=== PATIENT | female | born 1940 | race Caucasian/White ===

== ENCOUNTER → 2018-11-05 14:03 | Outpatient (CLI) | payer MEDICARE, SELFPAY ==
--- NOTE | 2018-11-05 14:11 | XR_ITS ---
PROCEDURE: XR LUMBAR SPINE MIN 4V CLINICAL INDICATION: LOW BACK PAIN Low back pain COMPARISON: No exams were available for comparison FINDINGS: Mild lumbar scoliosis convex right. Mild facet arthritic changes L5-S1. Degenerative disc disease is present at T12-L1 L1-L2 and L2-L3. There is anterolisthesis of L4 on L5 of 8 mm and there degenerative disc disease at L5-S1. No acute fracture or dislocation. IMPRESSION: Lumbar spondylosis with multilevel degenerative disc disease and facet arthritic change Dictated by: Ronaldo Rivera MD 11/05/2018 15:20 Electronically signed by Ronaldo Rivera MD in [place] 11/05/2018 15:20
== END ==
PROVIDERS: PCP Family Medicine; Visit Provider Family Medicine
DX: M54.5 Low back pain (principal)
CPT/HCPCS: 72110

== ENCOUNTER → 2022-10-07 15:20 | Outpatient (CLI) | payer MEDICARE, SELFPAY ==
[2022-10-07 12:48] LABS: Basophils % 0.3 % (0.1-2.0); Eosinophils # 0.2 K/mm3 (0.0-0.4); Eosinophils % 2.4 % (0.1-12.0); Hematocrit 34.4 % (37.0-47.0); Hemoglobin 10.7 g/dL (12.2-16.2); Lymphocytes # 1.7 K/mm3 (0.7-4.5); Lymphocytes % 18.9 % (10-50); Mean Corpuscular HGB Conc 31.2 g/dL (31.8-35.4); Mean Corpuscular Hemoglobin 23.4 pg (27.0-31.2); Mean Corpuscular Volume 74.9 fl (81-99); Mean Platelet Volume 8.2 fl (7.4-10.4); Monocytes # 0.7 K/mm3 (0.1-1.0); Monocytes % 7.6 % (1.7-9.3); Neutrophils # 6.4 K/mm3 (1.8-7.8); Neutrophils % 70.9 % (37.0-80.0); Platelet Count 467 K/mm3 (142-424); Red Blood Count 4.59 M/mm3 (4.20-5.40); Red Cell Distribution Width 18.1 % (11.5-17.5)
[2022-10-07 12:57] LABS: Alanine Aminotransferase 21 U/L (12-78); Albumin Level 4.2 g/dl (3.5-5.0); Albumin/Globulin Ratio 1.6 (1.1-1.8); Alkaline Phosphatase 100 U/L (38-126); Anion Gap 13.5 mEq/L (5-15); Aspartate Amino Transferase 27 U/L (14-36); Bilirubin,Total 0.5 mg/dl (0.2-1.3); Blood Urea Nitrogen 23 mg/dl (7-17); Calcium 9.3 mg/dl (8.4-10.2); Carbon Dioxide 25 mmol/L (22.0-30.0); Chloride 104 mmol/L (98-107); Chol/HDL Ratio 3.1 (1-3.5); Cholesterol 213 mg/dl (140-200); Estimated Glomerular Filt Rate 60 ml/min (>60); GFR (African American) 72 ML/MIN (>60); Globulin 2.7 g/dL (1.3-3.2); Glucose 129 mg/dl (74-100); HDL Cholesterol 68 mg/dl (40-60); Potassium 4.5 mmoL/L (3.5-5.1); Sodium 138 mmol/L (136-145); Total Protein,Serum 6.9 g/dl (6.3-8.2); Triglycerides 85 mg/dl (30-150); VLDL Cholesterol 17 mg/dL (0-40)
[2022-10-07 13:08] LABS: Direct LDL Cholesterol 108.25 mg/dL (100-129)
[2022-10-07 13:18] LABS: 25-OH Vitamin D, Total 36.2 ng/mL (30-100)
[2022-10-07 14:56] LABS: Iron 33 ug/dL (37-170)
[2022-10-07 15:06] LABS: Total Iron Binding Capacity 416 ug/dL (265-497)
== END ==
PROVIDERS: PCP Physician Assistant; Visit Provider Physician Assistant
DX: I10 Essential (primary) hypertension (principal); E55.9 Vitamin D deficiency, unspecified; R73.09 Other abnormal glucose; D64.9 Anemia, unspecified
CPT/HCPCS: 80053; 80061; 82306; 82728; 83036; 83540; 83550; 84443; 85025

== ENCOUNTER 2023-06-07 17:41 | Inpatient (IN) | payer MEDICARE, SELFPAY ==
[2023-06-07] VITALS (22 sets, daily range): BP systolic 100–170; BP diastolic 54–137; PULSE 67–117; RESP 14–24; TEMP 36.6–37; O2SAT 94–100; BMI 29.2
[2023-06-07] MEDS: ETOMIDATE 40MG/20ML VIAL 40 MG IV (17:42)
--- NOTE | 2023-06-07 17:51 | CT_ITS ---
PROCEDURE INFORMATION: Exam: CTA Chest With Contrast Exam date and time: 06/07/2023 6:47 PM Age: 83 years old Clinical indication: Injury or trauma; Other: Unresponsive; Additional info: AMS, syncope TECHNIQUE: Imaging protocol: Computed tomographic angiography of the chest with contrast. Exam focused on the arteries. 3D rendering (Not supervised by radiologist): MIP and/or 3D reconstructed images were created by the technologist. Radiation optimization: All CT scans at this facility use at least one of these dose optimization techniques: automated exposure control; mA and/or kV adjustment per patient size (includes targeted exams where dose is matched to clinical indication); or iterative reconstruction. Contrast material: ISOVUE; Contrast volume: 100 ml; Contrast route: INTRAVENOUS (IV); COMPARISON: 1. CT ANGIO ABDOMEN PELVIS 06/07/2023 6:[address] ANGIO NECK 06/07/2023 6:[address] THORACIC SPINE WO CON 06/07/2023 6:38 PM FINDINGS: Tubes, catheters and devices: There is an endotracheal tube in place. Pulmonary arteries: Normal. No pulmonary emboli. Aorta: There is atherosclerotic disease of the visualized aorta and its major branch vessels. Lungs: Scattered areas of bronchial wall thickening which are likely chronic inflammatory. A few areas of subpleural reticulation are noted, nonspecific. Pleural spaces: Unremarkable. No pneumothorax. No pleural effusion. Heart: Unremarkable. No cardiomegaly. No pericardial effusion. Coronary arteries: There is mild coronary atherosclerotic disease/calcification although evaluation is limited secondary to the non gated nature of the study. Lymph nodes: Unremarkable. No enlarged lymph nodes. Intraperitoneal space: Please see the dedicated interpretation of abdomen and pelvis for findings in that region. Bones/joints: Please see the dedicated interpretation of the spine for findings in that region. There is diffuse degenerative disease of the visualized osseous structures. Soft tissues: Unremarkable. IMPRESSION: 1. No acute traumatic injury is identified. 2. Please see the dedicated interpretation of abdomen and pelvis for findings in that region.
--- NOTE | 2023-06-07 17:51 | ECG_ITS ---
APPROVED REPORT Exam: Resting ECG HR:106 bpm ECG Measurements Heart Rate 106 AXES CA 170 P 50 QRSd 131 QRS -81 QT 346 T 45 QTc 408 Conclusion SINUS TACHYCARDIA WITH FREQUENT ECTOPIC PREMATURE COMPLEXES RIGHT BUNDLE BRANCH BLOCK [120+ ms QRS DURATION, UPRIGHT V1, 40+ ms S IN I/aVL/V4/V5/V6] PROBABLE ANTERIOR MYOCARDIAL INFARCTION , OF INDETERMINATE AGE [35 ms Q WAVE IN V3/V4] INFERIOR MYOCARDIAL INFARCTION , OF INDETERMINATE AGE [40+ ms Q WAVE AND/OR ST/T ABNORMALITY IN II/aVF] ABNORMAL ECG UNCONFIRMED REPORT Electronically signed by : SALINA SALAMANCA, 06/09/2023 03:01:12
--- NOTE | 2023-06-07 17:52 | CT_ITS ---
PROCEDURE INFORMATION: Exam: CT Thoracic Spine Without Contrast Exam date and time: 06/07/2023 6:38 PM Age: 83 years old Clinical indication: Injury or trauma; Other: Unresponsive; Blunt trauma (contusions or hematomas); Additional info: Trauma, critical injury suspected TECHNIQUE: Imaging protocol: Computed tomography of the thoracic spine without contrast. Radiation optimization: All CT scans at this facility use at least one of these dose optimization techniques: automated exposure control; mA and/or kV adjustment per patient size (includes targeted exams where dose is matched to clinical indication); or iterative reconstruction. COMPARISON: 1. CT CERVICAL SPINE WO CON 06/07/2023 6:34 PM 2. CR XR LUMBAR SPINE MIN 4V 11/05/2018 2:21 PM FINDINGS: Bones/joints: There is a slight levo scoliotic curvature of the spine. No evidence of acute spondylolisthesis or vertebral subluxation. Vertebral body heights are generally preserved, but some endplate sclerosis and anterior osteophytes are noted at multiple levels. Narrowing of multiple intervertebral disc spaces observed, indicative of degenerative disc disease. Hypertrophic changes are seen in the facet joints, consistent with osteoarthritis. No fractures or bony lesions identified. No abnormalities seen in adjacent osseous structures. Soft tissues: Unremarkable. Other findings: No obvious abnormalities seen in the prevertebral and paravertebral soft tissues. IMPRESSION: Degenerative changes without acute abnormality detected.
--- NOTE | 2023-06-07 17:52 | CT_ITS ---
PROCEDURE INFORMATION: Exam: CT Lumbar Spine Without Contrast Exam date and time: 06/07/2023 6:40 PM Age: 83 years old Clinical indication: Injury or trauma; Other: Unresponsive; Additional info: Trauma, critical injury suspected TECHNIQUE: Imaging protocol: Computed tomography of the lumbar spine without contrast. Radiation optimization: All CT scans at this facility use at least one of these dose optimization techniques: automated exposure control; mA and/or kV adjustment per patient size (includes targeted exams where dose is matched to clinical indication); or iterative reconstruction. COMPARISON: 1. CR XR LUMBAR SPINE MIN 4V 11/05/2018 2:[address] THORACIC SPINE WO CON 06/07/2023 6:38 PM FINDINGS: Bones/joints: Status post right total hip arthroplasty with associated streak artifact which limits evaluation of the pelvis. No evidence of acute spondylolisthesis or vertebral subluxation. Vertebral body heights are generally preserved, but some endplate sclerosis and anterior osteophytes are noted at multiple levels. Narrowing of multiple intervertebral disc spaces observed, indicative of degenerative disc disease. Hypertrophic changes are seen in the facet joints, consistent with osteoarthritis. No fractures or bony lesions identified. No abnormalities seen in adjacent osseous structures. There is a dextroscoliotic curvature of the spine. There is anterolisthesis of L4 on L5. Lungs: There are areas of subpleural reticulation throughout the visualized lungs which are nonspecific. Vasculature: Scattered atherosclerotic disease of the arterial vasculature. Soft tissues: Unremarkable. Other findings: No obvious abnormalities seen in the prevertebral and paravertebral soft tissues. IMPRESSION: Degenerative changes without acute abnormality detected.
--- NOTE | 2023-06-07 17:52 | CT_ITS ---
PROCEDURE INFORMATION: Exam: CTA Head With Contrast, Arteriography Exam date and time: 06/07/2023 6:43 PM Age: 83 years old Clinical indication: Injury or trauma; Other: Unresponsive; Unconscious; Additional info: Trauma, critical injury suspected TECHNIQUE: Imaging protocol: Computed tomographic angiography of the head with contrast. Exam focused on the arteries. 3D rendering (Not supervised by radiologist): MIP and/or 3D reconstructed images were created by the technologist. Radiation optimization: All CT scans at this facility use at least one of these dose optimization techniques: automated exposure control; mA and/or kV adjustment per patient size (includes targeted exams where dose is matched to clinical indication); or iterative reconstruction. Contrast material: ISOVUE; Contrast volume: 370 ml; Contrast route: INTRAVENOUS (IV); COMPARISON: CT HEAD/BRAIN WO CON 06/07/2023 6:26 PM FINDINGS: Limitations: Study is of limited due to motion artifact and patient positioning. ANTERIOR CIRCULATION: Right internal carotid artery: Intracranial segment is patent with no significant stenosis. No aneurysm. Right middle cerebral artery: No occlusion or significant stenosis. No aneurysm. Right anterior cerebral artery: No occlusion or significant stenosis. No aneurysm. Left internal carotid artery: Intracranial segment is patent with no significant stenosis. No aneurysm. Left middle cerebral artery: No occlusion or significant stenosis. No aneurysm. Left anterior cerebral artery: No occlusion or significant stenosis. No aneurysm. POSTERIOR CIRCULATION: Right vertebral artery: No occlusion or significant stenosis. No aneurysm. Left vertebral artery: No occlusion or significant stenosis. No aneurysm. Basilar artery: There is focal narrowing of the of basilar artery. No occlusion. Right posterior cerebral artery: Right posterior cerebral artery not well demonstrated and appears technical in nature. No occlusion. Left posterior cerebral artery: Left posterior cerebral artery not well demonstrated due to technical limitations. No occlusion. Brain: No intracranial hemorrhage, mass effect, or midline shift. Cerebral ventricles: No ventriculomegaly. Bones/joints: Unremarkable. No acute fracture. Soft tissues: Unremarkable. IMPRESSION: 1. Limited study. 2. Focal stenosis midportion basilar artery. 3. Limited assessment of the posterior cerebral arteries to the technical factors. No occlusion.
--- NOTE | 2023-06-07 17:52 | CT_ITS ---
PROCEDURE INFORMATION: Exam: CT Cervical Spine Without Contrast Exam date and time: 06/07/2023 6:34 PM Age: 83 years old Clinical indication: Injury or trauma; Other: Unresponsive; Unconscious; Additional info: Trauma, critical injury suspected TECHNIQUE: Imaging protocol: Computed tomography of the cervical spine without contrast. Radiation optimization: All CT scans at this facility use at least one of these dose optimization techniques: automated exposure control; mA and/or kV adjustment per patient size (includes targeted exams where dose is matched to clinical indication); or iterative reconstruction. COMPARISON: No relevant prior studies available. FINDINGS: Limitations: Suboptimal positioning. Tubes, catheters and devices: Endotracheal tube. Bones/joints: No acute fracture. Normal alignment. Mild facet osteoarthrosis within cervical spine. Mild degenerative disc disease within mid cervical spine. Moderate degenerative disc disease within lower cervical spine. Paranasal sinuses: Tiny air-fluid level within LEFT sphenoid sinus. Lungs: Unremarkable as visualized. Vasculature: Atherosclerotic disease of visualized arteries. Soft tissues: Unremarkable. IMPRESSION: 1. No fracture. 2. Sinus disease.
--- NOTE | 2023-06-07 17:52 | CT_ITS ---
PROCEDURE INFORMATION: Exam: CT Head Without Contrast Exam date and time: 06/07/2023 6:26 PM Age: 83 years old Clinical indication: Injury or trauma; Other: Unresponsive; Unconscious; Additional info: Trauma, critical injury suspected TECHNIQUE: Imaging protocol: Computed tomography of the head without contrast. Radiation optimization: All CT scans at this facility use at least one of these dose optimization techniques: automated exposure control; mA and/or kV adjustment per patient size (includes targeted exams where dose is matched to clinical indication); or iterative reconstruction. COMPARISON: No relevant prior studies available. FINDINGS: Limitations: Motion artifact - mild. Suboptimal positioning. Tubes, catheters and devices: Endotracheal tube. Brain: Moderate atrophy. No definite intracranial hemorrhage. No mass. Several scattered foci of decreased attenuation within periventricular/subcortical white matter. No definite edema. Cerebral ventricles: No hydrocephalus. Paranasal sinuses: Scattered minimal mucosal thickening of ethmoid sinuses. Tiny air-fluid level within LEFT sphenoid sinus. Mastoid air cells: No significant effusion. Orbital cavities: Unremarkable as visualized. Bones/joints: No acute fracture. Soft tissues: Unremarkable. Vasculature: Atherosclerotic disease of intracranial arteries. IMPRESSION: 1. Probable chronic microvascular ischemic changes. If symptoms persist, consider MRI. 2. Sinus disease.
--- NOTE | 2023-06-07 17:52 | CT_ITS ---
PROCEDURE INFORMATION: Exam: CTA Neck With Contrast Exam date and time: 06/07/2023 6:43 PM Age: 83 years old Clinical indication: Injury or trauma; Other: Unresponsive; Unconscious; Additional info: Trauma, critical injury suspected TECHNIQUE: Imaging protocol: Computed tomographic angiography of the neck with contrast. Exam focused on the cervical segments of the vasculature. 3D rendering (Not supervised by radiologist): MIP and/or 3D reconstructed images were created by the technologist. Radiation optimization: All CT scans at this facility use at least one of these dose optimization techniques: automated exposure control; mA and/or kV adjustment per patient size (includes targeted exams where dose is matched to clinical indication); or iterative reconstruction. Contrast material: ISOVUE; Contrast volume: 370 ml; Contrast route: INTRAVENOUS (IV); COMPARISON: CT CERVICAL SPINE WO CON 06/07/2023 6:34 PM FINDINGS: Limitations: Study is technically limited due to patient positioning, which in artifact as well as streak artifact emanating from multiple collaterals within the upper chest and not. Tubes, catheters and devices: There is a tracheostomy tube terminating 2 cm above the hui. Right common carotid artery: No stenosis. No dissection or occlusion. Right internal carotid artery: Right internal carotid artery partially obscured but grossly patent. Right external carotid artery: No occlusion or stenosis of the origin. Left common carotid artery: No stenosis. No dissection or occlusion. Left internal carotid artery: Left internal carotid artery partially obscured but grossly patent. Left external carotid artery: No occlusion or stenosis of the origin. Right vertebral artery: Right vertebral artery partially obscured but grossly patent. Left vertebral artery: Left vertebral artery partially obscured but grossly patent. Veins: There are prominent venous collaterals within the supraclavicular fossa and neck secondary to a chronic left subclavian vein stenosis. Soft tissues: Normal. No significant soft tissue swelling. Bones/joints: No acute fracture. IMPRESSION: 1. Limited study in part due to prominent streak artifact secondary to prominent venous collaterals within the neck secondary to chronic left subclavian vein stenosis. 2. No large vessel occlusion or severe stenosis detected. REFERENCES: NASCET CRITERIA. The degree of stenosis in the cervical segment of the internal carotid artery is based on NASCET criteria. Normal is no stenosis. Mild is less than 50% stenosis. Moderate is 50-69% stenosis. Severe is 70% to 99% stenosis. Total occlusion is no detectable patent lumen.
--- NOTE | 2023-06-07 17:52 | CT_ITS ---
PROCEDURE INFORMATION: Exam: CTA Abdomen and Pelvis With Contrast Exam date and time: 06/07/2023 6:47 PM Age: 83 years old Clinical indication: Injury or trauma; Other: Unresponsive; Additional info: Trauma, critical injury suspected TECHNIQUE: Imaging protocol: Computed tomographic angiography of the abdomen and pelvis with contrast. Exam focused on the arteries. 3D rendering (Not supervised by radiologist): MIP and/or 3D reconstructed images were created by the technologist. Radiation optimization: All CT scans at this facility use at least one of these dose optimization techniques: automated exposure control; mA and/or kV adjustment per patient size (includes targeted exams where dose is matched to clinical indication); or iterative reconstruction. Contrast material: ISOVUE; Contrast volume: 100 ml; Contrast route: INTRAVENOUS (IV); COMPARISON: 1. CT ANGIO CHEST PE PROTOCOL 06/07/2023 6:[address] LUMBAR SPINE WO CON 06/07/2023 6:[address] THORACIC SPINE WO CON 06/07/2023 6:38 PM FINDINGS: Diaphragm: There is a moderate hiatal hernia. Aorta: No aortic aneurysm. No aortic dissection. Celiac trunk and mesenteric arteries: No occlusion or significant stenosis. Renal arteries: No occlusion or significant stenosis. Right iliac arteries: No occlusion or significant stenosis. Left iliac arteries: No occlusion or significant stenosis. Other arteries: There is some atherosclerotic narrowing at the origin of the SMA. Liver: No mass. Gallbladder and bile ducts: Unremarkable. No calcified stones. No ductal dilation. Pancreas: Unremarkable. No mass. No ductal dilation. Spleen: Unremarkable. No splenomegaly. Adrenal glands: Unremarkable. No mass. Kidneys and ureters: Unremarkable. No solid mass. No hydronephrosis. Stomach and bowel: Unremarkable. No obstruction. No mucosal thickening. Appendix: No evidence of appendicitis. Intraperitoneal space: Unremarkable. No free air. No significant fluid collection. Lymph nodes: Unremarkable. No enlarged lymph nodes. Urinary bladder: There is a Sutherland catheter place within the urinary bladder. Reproductive: 2 cm right adnexal cyst in a presumably postmenopausal patient, further evaluation with nonemergent pelvic ultrasound is suggested. Bones/joints: Status post right total hip arthroplasty with associated streak artifact which limits evaluation of the pelvis. Slight anterolisthesis of L4 on L5. Soft tissues: Unremarkable. Other findings: Please see the dedicated interpretation of the thorax for findings in that region. IMPRESSION: 1. No evidence for acute traumatic injury. No acute pathology identified in the abdomen or pelvis. 2. 2 cm right adnexal cyst in a presumably postmenopausal patient, further evaluation with nonemergent pelvic ultrasound is suggested. 3. Please see the dedicated interpretation of the thorax for findings in that region.
[2023-06-07 18:05] LABS: Microscopic, Urine URINE MICROSCOPIC (MICROSCOPIC)
[2023-06-07 18:06] LABS: Appearance,Urine CLEAR (Clear); Bilirubin,Urine Negative (Negative); Blood, Urine Negative (Negative); Color,Urine YELLOW (Yellow); Glucose,Urine (UA) Negative (Negative); Ketones,Urine Negative (Negative); Leukocyte Esterase,Urine Negative (Negative); Nitrate,Urine Negative (Negative); PH,Urine 5.5 (5.0-8.5); Protein,Urine Negative (Negative); Specific Gravity, Urine 1.025 (1.005-1.030); Urobilinogen,Urine 0.2 EU/dl (0.2)
[2023-06-07 18:06] LABS: Basophils # 0.1 K/mm3 (0-0.2); Basophils % 0.5 % (0.1-2.0); Eosinophils # 0.1 K/mm3 (0.0-0.4); Eosinophils % 0.6 % (0.1-12.0); Hemoglobin 10.6 g/dL (12.2-16.2); Lymphocytes # 2.2 K/mm3 (0.7-4.5); Mean Corpuscular HGB Conc 30.4 g/dL (31.8-35.4); Mean Corpuscular Hemoglobin 22.6 pg (27.0-31.2); Mean Corpuscular Volume 74.3 fl (81-99); Mean Platelet Volume 7.7 fl (7.4-10.4); Monocytes # 1.4 K/mm3 (0.1-1.0); Monocytes % 6.7 % (1.7-9.3); Neutrophils # 17.7 K/mm3 (1.8-7.8); Neutrophils % 82.3 % (37.0-80.0); Platelet Count 592 K/mm3 (142-424); Red Blood Count 4.71 M/mm3 (4.20-5.40); Red Cell Distribution Width 18.4 % (11.5-17.5); White Blood Count 21.5 K/mm3 (4.8-10.8)
[2023-06-07 18:07] LABS: Chloride 116 mmol/L (98-107); Potassium 3.4 mmoL/L (3.5-5.1); Sodium 142 mmol/L (136-145)
[2023-06-07 18:09] LABS: HDL Cholesterol 76 mg/dl (40-60); Lipase 44 U/L (23-300)
[2023-06-07 18:10] LABS: Alanine Aminotransferase 20 U/L (12-78); Albumin Level 2.8 g/dl (3.5-5.0); Albumin/Globulin Ratio 1.4 (1.1-1.8); Alkaline Phosphatase 75 U/L (38-126); Anion Gap 11.4 mEq/L (5-15); Aspartate Amino Transferase 29 U/L (14-36); Bilirubin,Total 0.4 mg/dl (0.2-1.3); Blood Urea Nitrogen 21 mg/dl (7-17); Calcium 7.5 mg/dl (8.4-10.2); Carbon Dioxide 18 mmol/L (22.0-30.0); Chol/HDL Ratio 2.8 (1-3.5); Cholesterol 215 mg/dl (140-200); Creatine Kinase 318 U/L (30-135); Creatinine Clearance Estimated 49 mL/min (50-200); Estimated Glomerular Filt Rate 68 ml/min (>60); GFR (African American) 82 ML/MIN (>60); Glucose 147 mg/dl (74-100); Total Protein,Serum 4.8 g/dl (6.3-8.2); Triglycerides 94 mg/dl (30-150); VLDL Cholesterol 19 mg/dL (0-40)
[2023-06-07 18:12] LABS: Acetaminophen < 10 ug/ml (10-30); Activated Partial Thrombo Time 25.4 seconds (22.8-30.6); Ethyl Alcohol < 10 mg/dl (0-10); Lactic Acid 3.7 mmol/L (0.7-2.1)
--- NOTE | 2023-06-07 18:12 | HMH.EDGENADL ---
Discharge Plan Disposition Patient Disposition: Admitted Chief Complaint: Altered Mental Status Clinical Impressions Clinical Impression: Encephalopathy Discharge ED Provider: Jerrod Billingsley General Adult HPI General Chief complaint: Altered Mental Status Stated complaint: unresponsive Time Seen by Provider: 06/07/23 17:51 History of Present Illness HPI narrative: 83-year-old female history of hypertension, hyperlipidemia, chronic pain on hydrocodone presenting with unresponsiveness. Was found by family, unknown downtime. The think it is about 30 minutes, but do not actually know. EMS was called. On arrival, patient's glucose greater than 200, no obvious STEMI on twelve-lead, nasopharyngeal airway was placed without issue with minimal response from patient. Brought emergently to the emergency department. Patient given IV Narcan prior to arrival without change in response. Related Data Home Medications Medication Instructions Recorded Confirmed lisinopril 20 1 tab PO DAILY 02/05/23 05/08/23 mg-hydrochlorothiazide 12.5 mg tablet Previous Rx's Medication Instructions Recorded amlodipine 10 mg tablet 10 mg PO DAILY #90 tabs 12/04/22 ergocalciferol (vitamin D2) 1,250 50,000 unit PO QWEEK #14 caps 12/04/22 mcg (50,000 unit) capsule azithromycin 250 mg tablet See Rx Instructions PO .COMPLEX #6 05/08/23 (Zithromax Z-Jair) tabs prednisone 20 mg tablet 20 mg PO BID #10 tabs 05/08/23 hydrocodone 5 mg-acetaminophen 325 1 tab PO TID PRN pain #75 tabs 05/09/23 mg tablet hydrocodone 5 mg-acetaminophen 325 1 tab PO TID PRN pain 30 days #90 05/09/23 mg tablet tabs hydrocodone 5 mg-acetaminophen 325 1 tab PO TID PRN pain 30 days #90 05/09/23 mg tablet tabs meloxicam 15 mg tablet See Rx Instructions .Route 05/22/23 .COMPLEX #30 tabs Allergies Allergy/AdvReac Type Severity Reaction Status Date / Time No Known Allergies Allergy Verified 05/08/23 13:43 [facility] Disclaimer: The information contained in this section may have been updated after the patient was seen, as this information can be updated by other users. Medical History Chronic pain Hypertension Surgical History History of hip replacement Social History Smoking Status: Unknown if ever smoked alcohol intake: never current occupational status: retired Travel in the last 8 weeks: None ROS Obtained: Yes unobtainable due to mental status Physical Exam General General appearance: obtunded Head Head exam: atraumatic Eye Eye exam: Present EOMI (3mm) ENT ENT exam: Present mucous membranes dry Neck Neck exam: Present other (C-collar in place) Chest Chest inspection: Present symmetric chest wall rise; Absent tenderness Respiratory Respiratory exam: Present normal lung sounds bilaterally and wheezes; Absent respiratory distress, stridor, accessory muscle use or prolonged expiratory phase Cardiovascular Cardiovascular exam: Present normal rhythm and tachycardia Abdominal Exam Abdominal exam: Present soft; Absent distention Extremities Exam Extremities exam: Present edema Neurological Exam Neurological exam: Present other (GCS 6 ([id number])) Medical Decision Making Medical Records Medical records reviewed: Yes I reviewed the patient's medical records. Per Inquiry Pt receiving controlled substance: No Per was queried for this patient: No Vital Signs: 06/07/23 18:42 06/07/23 18:56 06/07/23 19:00 Pulse Rate 92 H 94 H Pulse Rate [Left Radial] 117 H Respiratory Rate 24 20 18 Blood Pressure 160/77 H 161/77 H Blood Pressure [Right Arm] 170/137 H Blood Pressure Mean 104 105 Blood Pressure Mean [Right Arm] 148 02 Sat by Pulse Oximetry 100 100 99 Oxygen Delivery Method Ambu-Bag Mechanical Ventilation Mechanical Ventilation 06/07/23 19:11 06/07/23 19:21 06/07/23 19:25 Pulse Rate 95 H 94 H 98 H Pulse Rate [Left Radial] Respiratory Rate 16 21 16 Blood Pressure 161/86 H 148/76 H 160/81 H Blood Pressure [Right Arm] Blood Pressure Mean 111 100 95 Blood Pressure Mean [Right Arm] 02 Sat by Pulse Oximetry 100 100 99 Oxygen Delivery Method Mechanical Ventilation Mechanical Ventilation Mechanical Ventilation Lab Data Lab Results 06/07/23 17:42: WBC 21.5 H*, RBC 4.71, Hgb 10.6 L, Hct 35.0 L, MCV 74.3 L, MCH 22.6 L, MCHC 30.4 L, RDW 18.4 H, Plt Count 592 H, MPV 7.7, Neut % (Auto) 82.3 H, Lymph % (Auto) 10.0, [place] % (Auto) 6.7, Eos % (Auto) 0.6, Baso % (Auto) 0.5, Neut # (Auto) 17.7 H, Lymph # (Auto) 2.2, [place] # (Auto) 1.4 H, Eos # (Auto) 0.1, Baso # (Auto) 0.1, Total Counted 100, Neutrophils % (Manual) 83 H, Lymphocytes % (Manual) 16, Atypical Lymphs % 1.0, Platelet Estimate Moderate increase, Hypochromasia 2+, APTT 25.4, Sodium 142, Potassium 3.4 L, Chloride 116 H, Carbon Dioxide 18 L, Anion Gap 11.4, BUN 21 H, Creatinine 0.80, Estimated Creat Clear 49, Estimated GFR 68, Est GFR ( Amer) 82, Glucose 147 H, Hemoglobin A1c 6.0, Lactate 3.7 H, Calcium 7.5 L, Total Bilirubin 0.4, AST 29, ALT 20, Alkaline Phosphatase 75, Total Creatine Kinase 318 H, Troponin I 0.05 H, NT-Pro-B Natriuret Pep 742 H, Total Protein 4.8 L D, Albumin 2.8 L, Globulin 2.0, Albumin/Globulin Ratio 1.4, Triglycerides 94, Cholesterol 215 H, LDL Cholesterol Direct 109.50, VLDL Cholesterol 19, HDL Cholesterol 76 H, Cholesterol/HDL Ratio 2.8, Lipase 44, TSH 1.13, Thyroxine (T4) 7.8, Acetaminophen < 10 L, Plasma/Serum Alcohol < 10 06/07/23 17:47: Urine Color Yellow, Urine Appearance Clear, Urine pH 5.5, Ur Specific [place] 1.025, Urine Protein Negative, Urine Glucose (UA) Negative, Urine Ketones Negative, Urine Blood Negative, Urine Nitrate Negative, Urine Bilirubin Negative, Urine Urobilinogen 0.2, Ur Leukocyte Esterase Negative, Urine RBC None, Urine WBC Occasional, Ur Squamous Epith Cells Occasional, Urine Bacteria Trace 06/07/23 17:53: Specimen Source rr, O2 % 100, ABG pH 7.36, ABG pCO2 33.3 L, ABG pO2 463.9 H, ABG HCO3 18.5 L, ABG Total CO2 19.5 L, ABG O2 Saturation 100, ABG Base Excess -6.9 L, Ronaldo Test y, Vent Rate 18, Tidal Volume 420, PEEP 5 06/07/23 17:42 06/07/23 17:42 Orders (Tests/Meds): ED MEDICATIONS Generic Name Dose Route Start Last Admin Trade Name Freq PRN Reason Stop Dose Admin Acetaminophen 650 mg 06/07/23 19:59 Acetaminophen 325mg Tab PO 07/07/23 19:58 Q4HP PRN Fever or Mild Pain (1-3) Enoxaparin Sodium 40 mg 06/07/23 20:05 Enoxaparin 40mg/0.4ml Syringe SQ 06/07/23 20:06 ONCE ONE Propofol 100 mls @ 2.245 mls/hr 06/07/23 18:15 06/07/23 19:35 Diprivan 10mg/Ml 100ml Bottle IV 07/07/23 18:14 30 mcg/kg/min .Q24H LUCILA 13.47 mls/hr Titration Protocol 5 MCG/KG/MIN Sodium Chloride 1,570 mls @ 785 mls/hr 06/07/23 19:56 06/07/23 20:09 Sod Chlor 0.9% 1000ml Bag 30 ml/kg infuse over 2 hr (1570 ml) 06/07/23 21:55 785 mls/hr IV Administration .Q2H ONE Vancomycin/PEG/NADA/Lysine/Water 1.75 gm in 350 mls @ 175 mls/hr 06/07/23 20:15 Vancomycin 1.75gm/350ml (Peg) Premix IV 06/07/23 22:14 ONCE ONE Miscellaneous 1 each 06/07/23 20:00 06/07/23 20:01 Vancomycin Consult Request NOTAPPLIC 07/07/23 19:59 1 each CONSULT PHARMACY [facility] Administration Miscellaneous 1 each 06/07/23 20:15 06/07/23 20:15 Vancomycin Consult Request NOTAPPLIC 07/07/23 20:14 1 each CONSULT PHARMACY [facility] Administration Morphine Sulfate 2 mg 06/07/23 19:59 Morphine 2mg/Ml Syringe IV 07/07/23 19:58 Q2HP PRN Severe Pain (7-10) Pantoprazole Sodium 40 mg 06/07/23 21:00 Pantoprazole 40mg Vial IV 07/07/23 20:59 HS [facility] Discontinued Medications Generic Name Dose Route Start Last Admin Trade Name Freq PRN Reason Stop Dose Admin Etomidate 40 mg 06/07/23 17:42 06/07/23 17:42 Etomidate 40mg/20ml Vial IV 06/07/23 17:43 40 mg ONCE ONE Administration Etomidate 30 mg 06/07/23 18:33 06/07/23 18:38 Etomidate 40mg/20ml Vial IV 06/07/23 18:34 30 mg ONCE ONE Administration Hydrocortisone Sodium Succinate 100 mg 06/07/23 18:32 06/07/23 19:14 Hydrocortisone Sod Succinate 100mg Vial IV 06/07/23 18:33 100 mg ONCE ONE Administration Hydromorphone HCl 1 mg 06/07/23 19:23 06/07/23 19:28 Hydromorphone 2mg/Ml Syringe IV 06/07/23 19:24 1 mg ONCE ONE Administration Ampicillin Sodium/Sulbactam 100 mls @ 200 mls/hr 06/07/23 19:54 06/07/23 20:09 Sodium 3 gm/ Sodium Chloride IV 06/07/23 19:55 200 mls/hr ONCE ONE Administration Iopamidol 190 ml 06/07/23 18:44 06/07/23 18:47 Iopamidol-370 (76%);100ml Bottle IV 06/07/23 18:45 190 ml ONCE ONE Administration Sodium Chloride 100 ml 06/07/23 18:44 06/07/23 18:47 0.9 % Sodium Chloride 50 Ml Vial IV 06/07/23 18:45 100 ml ONCE ONE Administration Sodium Chloride 10 ml 06/07/23 18:44 06/07/23 18:47 Sodium Chloride 0.9% 10ml Syr (Rad Only) IV 06/07/23 18:45 10 ml ONCE ONE Administration Succinylcholine Chloride 150 mg 06/07/23 17:42 06/07/23 18:22 Succinylcholine 20mg/Ml 10 Ml Mdv IV 06/07/23 17:43 150 mg ONCE ONE Administration ORDERS Category Date Time Status CT angio abdomen pelvis Stat Cat Scan 06/07/23 17:[address] angio chest PE protocol Stat Cat Scan 06/07/23 17:[address] angio head Stat Cat Scan 06/07/23 17:[address] angio neck Stat Cat Scan 06/07/23 17:[address] cervical spine wo con Stat Cat Scan 06/07/23 17:[address] head/brain wo con Stat Cat Scan 06/07/23 17:[address] lumbar spine wo con Stat Cat Scan 06/07/23 17:[address] thoracic spine wo con Stat Cat Scan 06/07/23 17:52 Completed Acetaminophen Stat Lab 06/07/23 17:42 Completed CK [Creatine Kinase] Stat Lab 06/07/23 17:42 Completed Complete Blood Count Auto Diff AMLAB Lab 06/08/23 06:00 Ordered Complete Blood Count Auto Diff Stat Lab 06/07/23 17:42 Completed Comprehensive Metabolic Panel AMLAB Lab 06/08/23 06:00 Ordered Comprehensive Metabolic Panel Stat Lab 06/07/23 17:42 Completed Ethanol [Ethyl Alcohol] Stat Lab 06/07/23 17:42 Completed Hemoglobin A1C Stat Lab 06/07/23 17:42 Completed Lactic Acid Stat Lab 06/07/23 17:42 Completed Lipase Stat Lab 06/07/23 17:42 Completed Lipid Panel Stat Lab 06/07/23 17:42 Completed Magnesium AMLAB Lab 06/08/23 06:00 Ordered NT Pro Brain Natriuretic Pep. Stat Lab 06/07/23 17:42 Completed PTT [Activated Partial Thrombo Time] Stat Lab 06/07/23 17:42 Completed T4 (Thyroxine) Stat Lab 06/07/23 17:42 Completed TSH [Thyroid Stimulating Hormone] Stat Lab 06/07/23 17:42 Completed Troponin I Q3H Lab 06/07/23 21:00 Ordered Troponin I Q3H Lab 06/08/23 00:00 Ordered Troponin I Stat Lab 06/07/23 17:42 Completed Urinalysis and Microscopic Stat Lab 06/07/23 17:47 Completed Blood Culture Stat Micro 06/07/23 19:20 Received ABG [Arterial Blood Gas] Stat RT 06/07/23 17:53 Completed Medical Decision Narrative: 83-year-old female history of hypertension, hyperlipidemia, chronic pain on hydrocodone presenting with unresponsiveness. Was found by family, unknown downtime. The think it is about 30 minutes, but do not actually know. EMS was called. On arrival, patient's glucose greater than 200, no obvious STEMI on twelve-lead, nasopharyngeal airway was placed without issue with minimal response from patient. Brought emergently to the emergency department. Patient given IV Narcan prior to arrival without change in response. History obtained with EMS. On arrival, patient GCS of 6, saturating appropriately on nonrebreather and nasopharyngeal airway in place. Intermittently having inward turning of bilateral upper extremities concerning for possible posturing. Lower extremities doing the same intermittently. Pupils are 4 mm and reactive sluggishly bilaterally. No obvious head or neck trauma, lungs with bilateral wheezes that are faint, but breath sounds bilaterally. Patient does have intact and symmetric pulses in bilateral upper and lower extremities. Lower extremity edema. Patient tachycardic, but hemodynamically stable otherwise. She is afebrile. Patient was intubated for airway protection shortly after arrival using etomidate and succinylcholine. Post sedation with propofol. Cardiac ultrasound with difficult windows, only able to see there is no effusion. Bilateral breath sounds, there does appear to be B-lines in both hemithoraces. Labs and trauma scans obtained. Independent interpretation of workup demonstrates leukocytosis 22 with neutrophilia. Lactate 3.3, initial blood gas not acidotic with pH 7.36, CO2 33, oxygen elevated, lactate 3. Chemistry nonactionable, kidney function normal, CK3 18, initial troponin 0.05, BNP 742. EKG independently interpreted and sinus tachycardia 107 bpm with right bundle branch block morphology, no ST or T wave changes concerning for acute ischemia. [place], QT intervals within normal limits and axis normal. Trauma scans independently interpreted and are surprisingly underwhelming. No intracranial hemorrhage, no evidence of CVA, no PE, no dissection on CTA chest. No pneumothorax or pneumonia. CTA of the abdomen and pelvis without acute intra-abdominal abnormality either. Patient given sepsis bolus with normal saline, vancomycin and Unasyn. Patient's clinical history is concerning for encephalopathy versus malignant arrhythmia, versus mechanical fall with severe concussion, among other etiologies. Patient has been prophylactically antibiosis, no obvious, actionable traumatic pathology, and overall unremarkable workup. Hospitalist was contacted and case was discussed at length, patient be admitted for further definitive management and evaluation in the setting of encephalopathy of unknown etiology. Because patient high risk for clinical decompensation, deemed appropriate for inpatient admission. Results were relayed to patient family who voiced understanding and patient was agreeable to inpatient admission and management. Patient was admitted to the hospital for further definitive management. Procedures Intubation Mallampati Score:: Class IV Time out performed: No sedative: Etomidate Mg Given: 40 paralytic: Succinylcholine Mg Given: 150 Laryngoscope: Poppy Assist Device Used: fiber optic device ET Tube Size: 7.5 ET Tube Uncuffed: Yes Tube Secured Depth (cm): 22 Tube Secured Location: teeth Tube Placement Confirmation: visualized tube passing through cords, equal breath sounds bilaterally, no breath sounds over epigastrium and confirmation by capnometry Patient Tolerated Procedure: well Intubation Complications: none Critical Care Critical Care Time Critical Care Time: Yes (respiratory, neurologic) Attestation: On 06/07/23, the high probability of a clinically significant, sudden or life threatening deterioration of the following system(s) required my full and direct attention, intervention and personal management. The time I documented below is in addition to time spent performing reported procedures but includes the following listed in this critical care notation. Total Time Total Critical Care Time: 120
[2023-06-07 18:13] LABS: MANUAL DIFFERENTIAL MANUAL DIFFERENTIAL (MANUAL DIFF)
[2023-06-07] MEDS: propofoL 100 ML 4.49000000000000021 MG IV (18:17)
[2023-06-07 18:20] LABS: Bacteria,Urine Trace /lpf; Squamous Epithelial Cell,Urine Occasional #/hpf (0-5); WBC,Urine Occasional #/hpf (0-3)
[2023-06-07 18:20] LABS: NT Pro Brain Natriuretic Pep. 742 pg/mL (0-450)
[2023-06-07] MEDS: SUCCINYLCHOLINE 20MG/ML 10 ML MDV 150 MG IV (18:22)
[2023-06-07 18:24] LABS: Troponin I 0.05 ng/ml (0.00-0.034)
[2023-06-07 18:28] LABS: Lymphocytes % 16 % (10-50); Neutrophils % 83 % (42-76); Platelet Estimate Moderate Increase; Total Cells Counted 100
[2023-06-07 18:29] LABS: Hypochromasia 2+; T4 (Thyroxine) 7.8 ug/dl (5.53-11.0)
[2023-06-07] MEDS: ETOMIDATE 40MG/20ML VIAL 30 MG IV (18:38)
[2023-06-07 18:43] LABS: Thyroid Stimulating Hormone 1.13 uIU/mL (0.465-4.68)
[2023-06-07] MEDS: IOPAMIDOL-370 (76%);100ML BOTTLE 190 ML IV (18:47)
[2023-06-07] MEDS: 0.9 % SODIUM CHLORIDE 50 ML VIAL 100 ML IV (18:47)
[2023-06-07] MEDS: SODIUM CHLORIDE 0.9% 10ML SYR (RAD ONLY) 10 ML IV (18:47)
--- NOTE | 2023-06-07 19:02 | PC.NURSE ---
FAMILY AT BEDSIDE
--- NOTE | 2023-06-07 19:02 | PC.NURSE ---
lab called for blood culture draw at this time
--- NOTE | 2023-06-07 19:03 | PC.NURSE ---
RT notified of ABG order
--- NOTE | 2023-06-07 19:10 | PC.NURSE ---
Report received from ALISA Danielson
[2023-06-07] MEDS: HYDROCORTISONE SOD SUCCINATE 100MG VIAL 100 MG IV (19:14)
[2023-06-07] MEDS: HYDROMORPHONE 2MG/ML SYRINGE 1 MG IV (19:28)
--- NOTE | 2023-06-07 19:45 | PC.NURSE ---
Dr. Elder talking to Hospitilist for admission
[2023-06-07 19:49] LABS: ABG Base Excess -6.9 mmol/L (-2.4-2.3); ABG HCO3 18.5 mmhg (22.0-26.0); ABG Oxygen Saturation 100 % (90-100); ABG PCO2 33.3 mmhg (35.0-45.0); ABG PH 7.36 mmol/L (7.35-7.45); ABG PO2 463.9 mmhg (80-100); ABG TCO2 19.5 mmhg (23-27)
--- NOTE | 2023-06-07 19:56 | PC.NURSE ---
ED doctor on phone with hospitalist
[2023-06-07] MEDS: VANCOMYCIN CONSULT REQUEST 1 EACH NOTAPPLIC ×2 (20:01→20:15)
--- NOTE | 2023-06-07 20:03 | PC.NURSE ---
notified house wirer helper of admission
[2023-06-07] MEDS: 0.9 % SODIUM CHLORIDE 1000ML 1,570 ML 785 ML IV (20:09)
[2023-06-07] MEDS: AMPICILLIN/SULBACTAM 3 GM in 0.9 % SODIUM CHLORIDE 100 ML IV (20:09)
--- NOTE | 2023-06-07 20:09 | P.HP_ITS ---
History of Present Illness *Admission Date: 06/07/23 [facility] Disclaimer: The information contained in this section may have been updated after the patient was seen, as this information can be updated by other users. Medical History Chronic pain Hypertension Surgical History History of hip replacement Social History Smoking Status: Unknown if ever smoked alcohol intake: never current occupational status: retired Travel in the last 8 weeks: None Meds Home Medications and Allergies Home Medications Medication Instructions Recorded Confirmed Type amlodipine 10 mg tablet 10 mg PO DAILY #90 tabs 12/04/22 05/08/23 Rx ergocalciferol (vitamin D2) 1,250 50,000 unit PO QWEEK #14 caps 12/04/22 05/08/23 Rx mcg (50,000 unit) capsule lisinopril 20 1 tab PO DAILY 02/05/23 05/08/23 History mg-hydrochlorothiazide 12.5 mg tablet azithromycin 250 mg tablet See Rx Instructions PO .COMPLEX #6 05/08/23 05/08/23 Rx (Zithromax Z-Jair) tabs prednisone 20 mg tablet 20 mg PO BID #10 tabs 05/08/23 05/08/23 Rx hydrocodone 5 mg-acetaminophen 325 1 tab PO TID PRN pain #75 tabs 05/09/23 05/09/23 Rx mg tablet hydrocodone 5 mg-acetaminophen 325 1 tab PO TID PRN pain 30 days #90 05/09/23 05/09/23 Rx mg tablet tabs hydrocodone 5 mg-acetaminophen 325 1 tab PO TID PRN pain 30 days #90 05/09/23 05/09/23 Rx mg tablet tabs meloxicam 15 mg tablet See Rx Instructions .Route 05/22/23 Rx .COMPLEX #30 tabs New Prescriptions to Start Prescriptions: Allergies Allergy/AdvReac Type Severity Reaction Status Date / Time No Known Allergies Allergy Verified 05/08/23 13:43 Exam Data for Last 24 hours Vital signs and Labs for Last 24 Hours: Pulse Resp BP Pulse Ox O2 Del Method 98 H 16 160/81 H 99 Mechanical Ventilation 06/07/23 19:25 06/07/23 19:25 06/07/23 19:25 06/07/23 19:25 06/07/23 19:25 Laboratory Results - last 24 hr 06/07/23 17:42: WBC 21.5 H*, RBC 4.71, Hgb 10.6 L, Hct 35.0 L, MCV 74.3 L, MCH 22.6 L, MCHC 30.4 L, RDW 18.4 H, Plt Count 592 H, MPV 7.7, Neut % (Auto) 82.3 H, Lymph % (Auto) 10.0, [place] % (Auto) 6.7, Eos % (Auto) 0.6, Baso % (Auto) 0.5, Neut # (Auto) 17.7 H, Lymph # (Auto) 2.2, [place] # (Auto) 1.4 H, Eos # (Auto) 0.1, Baso # (Auto) 0.1, Total Counted 100, Neutrophils % (Manual) 83 H, Lymphocytes % (Manual) 16, Atypical Lymphs % 1.0, Platelet Estimate Moderate increase, Hypochromasia 2+, APTT 25.4, Sodium 142, Potassium 3.4 L, Chloride 116 H, Carbon Dioxide 18 L, Anion Gap 11.4, BUN 21 H, Creatinine 0.80, Estimated Creat Clear 49, Estimated GFR 68, Est GFR ( Amer) 82, Glucose 147 H, Hemoglobin A1c 6.0, Lactate 3.7 H, Calcium 7.5 L, Total Bilirubin 0.4, AST 29, ALT 20, Alkaline Phosphatase 75, Total Creatine Kinase 318 H, Troponin I 0.05 H, NT-Pro-B Natriuret Pep 742 H, Total Protein 4.8 L D, Albumin 2.8 L, Globulin 2.0, Albumin/Globulin Ratio 1.4, Triglycerides 94, Cholesterol 215 H, LDL Cholesterol Direct 109.50, VLDL Cholesterol 19, HDL Cholesterol 76 H, Cholesterol/HDL Ratio 2.8, Lipase 44, TSH 1.13, Thyroxine (T4) 7.8, Acetaminophen < 10 L, Plasma/Serum Alcohol < 10 06/07/23 17:47: Urine Color Yellow, Urine Appearance Clear, Urine pH 5.5, Ur Specific [place] 1.025, Urine Protein Negative, Urine Glucose (UA) Negative, Urine Ketones Negative, Urine Blood Negative, Urine Nitrate Negative, Urine Bilirubin Negative, Urine Urobilinogen 0.2, Ur Leukocyte Esterase Negative, Urine RBC None, Urine WBC Occasional, Ur Squamous Epith Cells Occasional, Urine Bacteria Trace I & O for Last 24 hours: Intake & Output 06/04/23 06/05/23 06/06/23 06/07/23 23:59 23:59 23:59 23:59 Intake Total 8.084 / 8.084 Balance 8.084 / 8.084 Weight 74.843 kg
[2023-06-07 20:11] LABS: Allen's Test y; Oxygen 100 %; PEEP 5; Source rr; Tidal Volume 420; Vent Rate 18
--- NOTE | 2023-06-07 20:44 | PC.NURSE ---
report given to ALISA Tran
--- NOTE | 2023-06-07 20:46 | PC.NURSE ---
Waiting for respiratory to transport patient to second floor
[2023-06-07 21:29] LABS: Reflex Lactic Add Lactic Reflex
[2023-06-07 21:44] LABS: Lactic Acid Follow Up (RFLX 1) 1.2 mmol/L (0.7-2.1)
[2023-06-07 21:59] LABS: Troponin I 0.42 ng/ml (0.00-0.034)
--- NOTE | 2023-06-07 22:25 | XR_ITS ---
PROCEDURE INFORMATION: Exam: XR Chest Exam date and time: 06/07/2023 10:46 PM Age: 83 years old Clinical indication: Device placement; Ett placement (vent status) TECHNIQUE: Imaging protocol: Radiologic exam of the chest. Views: 1 view. COMPARISON: CT ANGIO CHEST PE PROTOCOL 06/07/2023 6:47 PM FINDINGS: Tubes, catheters and devices: There is an endotracheal tube in place, tip projects over the mid trachea. Lungs: No evidence of acute pulmonary disease or infiltrates Pleural spaces: No large effusion or pneumothorax. Heart/Mediastinum: There is a moderate hiatal hernia. Bones/joints: No evidence of acute osseous abnormalities within the visualized portions of the thoracic spine and ribs. Osseous structures appear appropriate for patient age. Other findings: The patient is rotated on the examination which somewhat alters the expected anatomic relationships and limits the study. IMPRESSION: Radiographically appropriate position of the endotracheal tube.
[2023-06-07] MEDS: VANCOMYCIN/WATER FOR INJ (PEG) 1.75 GM/350 ML PIGGYBACK IV (22:37)
[2023-06-07] MEDS: PANTOPRAZOLE 40MG VIAL 40 MG IV (22:37)
[2023-06-07] MEDS: ENOXAPARIN 40MG/0.4ML SYRINGE 40 MG SQ (22:37)
--- NOTE | 2023-06-07 22:40 | P.HPDS_ITS ---
General Admission date:: 06/07/23 Discharge date: 06/07/23 *Admission Date: 06/07/23 *Chief complaint: found unresponsive *History of present illness: 83-year-old female history of hypertension, hyperlipidemia, chronic pain on hydrocodone presenting with unresponsiveness. Last time seen normal around 3p today. later was found by family, unknown downtime. The think it is about 30 minutes, but do not actually know. EMS was called. On arrival, patient's glucose greater than 200, no obvious STEMI on twelve-lead, nasopharyngeal airway was placed without issue with minimal response from patient. Brought emergently to the emergency department. Patient given IV Narcan prior to arrival without change in response. History obtained with EMS. On arrival, patient GCS of 6, saturating appropriately on nonrebreather and nasopharyngeal airway in place. Intermittently having inward turning of bilateral upper extremities concerning for possible posturing. Lower extremities doing the same intermittently. Pup ils are 4 mm and reactive sluggishly bilaterally. No obvious head or neck trauma, lungs with bilateral wheezes that are faint, but breath sounds bilaterally. Patient does have intact and symmetric pulses in bilateral upper and lower extremities. Lower extremity edema. Patient tachycardic, but hemodynamically stable otherwise. She is afebrile. Patient was intubated for airway protection shortly after arrival using etomidate and succinylcholine. Post sedation with propofol. Cardiac ultrasound with difficult windows, only able to see there is no effusion. Bilateral breath sounds, there does appear to be B-lines in both hemithoraces. Labs and trauma scans obtained. Independent interpretation of workup demonstrates leukocytosis 22 with neutrophilia. Lactate 3.3, initial blood gas not acidotic with pH 7.36, CO2 33, oxygen elevated, lactate 3. Chemistry nonactionable, kidney function normal, CK3 18, initial troponin 0.05, BNP 742. EKG independently interpreted and sinus tachycardia 107 bpm with right bundle branch block morphology, no ST or T wave changes concerning for acute ischemia. NH, QT intervals within normal limits and axis normal. Trauma scans independently interpreted and are surprisingly underwhelming. No intracranial hemorrhage, no evidence of CVA, no PE, no dissection on CTA chest. No pneumothorax or pneumonia. CTA of the abdomen and pelvis without acute intra-abdominal abnormality either. Patient given sepsis bolus with normal saline, vancomycin and Unasyn. Patient's clinical history is concerning for encephalopathy versus malignant arrhythmia, versus mechanical fall with severe concussion, among other etiologies. Patient has been prophylactically antibiosis, no obvious, actionable traumatic pathology, and overall unremarkable workup. Hospitalist was contacted and case was discussed at length, patient be admitted for further definitive management and evaluation in the setting of encephalopathy of unknown etiology. Because patient high risk for clinical decompensation, deemed appropriate for inpatient admission. 2140: Bedside assessment showed no improvement on mental status. Patient failed sedation break-off. Pupils are non reactive. Needs for MRI became urgent. Transfer requested for neurological evaluation. accepted for ICU. patient hemodinamically stable. on mechanical vent. propofol for sedationa. Setting AC VT 420 PEP 5 RR 18. [facility] Disclaimer: The information contained in this section may have been updated after the patient was seen, as this information can be updated by other users. Medical History Chronic pain Hypertension Surgical History History of hip replacement Social History Smoking Status: Unknown if ever smoked alcohol intake: never current occupational status: retired Travel in the last 8 weeks: None Review of Systems Review of Systems Review of systems:: unable to obtain Exam Data for Last 24 hours Vital signs and Labs for Last 24 Hours: Temp Pulse Resp BP Pulse Ox O2 Del Method 98.6 F 74 18 100/54 L 99 Mechanical Ventilation 06/07/23 21:46 06/07/23 21:13 06/07/23 21:13 06/07/23 21:13 06/07/23 20:20 06/07/23 21:13 Laboratory Results - last 24 hr 06/07/23 17:42: WBC 21.5 H*, RBC 4.71, Hgb 10.6 L, Hct 35.0 L, MCV 74.3 L, MCH 22.6 L, MCHC 30.4 L, RDW 18.4 H, Plt Count 592 H, MPV 7.7, Neut % (Auto) 82.3 H, Lymph % (Auto) 10.0, [place] % (Auto) 6.7, Eos % (Auto) 0.6, Baso % (Auto) 0.5, Neut # (Auto) 17.7 H, Lymph # (Auto) 2.2, [place] # (Auto) 1.4 H, Eos # (Auto) 0.1, Baso # (Auto) 0.1, Total Counted 100, Neutrophils % (Manual) 83 H, Lymphocytes % (Manual) 16, Atypical Lymphs % 1.0, Platelet Estimate Moderate increase, Hypochromasia 2+, APTT 25.4, Sodium 142, Potassium 3.4 L, Chloride 116 H, Carbon Dioxide 18 L, Anion Gap 11.4, BUN 21 H, Creatinine 0.80, Estimated Creat Clear 49, Estimated GFR 68, Est GFR ( Amer) 82, Glucose 147 H, Hemoglobin A1c 6.0, Lactate 3.7 H, Calcium 7.5 L, Total Bilirubin 0.4, AST 29, ALT 20, Alkaline Phosphatase 75, Total Creatine Kinase 318 H, Troponin I 0.05 H, NT-Pro-B Natriuret Pep 742 H, Total Protein 4.8 L D, Albumin 2.8 L, Globulin 2.0, Albumin/Globulin Ratio 1.4, Triglycerides 94, Cholesterol 215 H, LDL Cholesterol Direct 109.50, VLDL Cholesterol 19, HDL Cholesterol 76 H, Cholesterol/HDL Ratio 2.8, Lipase 44, TSH 1.13, Thyroxine (T4) 7.8, Acetaminophen < 10 L, Plasma/Serum Alcohol < 10 06/07/23 17:47: Urine Color Yellow, Urine Appearance Clear, Urine pH 5.5, Ur Specific [place] 1.025, Urine Protein Negative, Urine Glucose (UA) Negative, Urine Ketones Negative, Urine Blood Negative, Urine Nitrate Negative, Urine Bilirubin Negative, Urine Urobilinogen 0.2, Ur Leukocyte Esterase Negative, Urine RBC None, Urine WBC Occasional, Ur Squamous Epith Cells Occasional, Urine Bacteria Trace 06/07/23 17:53: Specimen Source rr, O2 % 100, ABG pH 7.36, ABG pCO2 33.3 L, ABG pO2 463.9 H, ABG HCO3 18.5 L, ABG Total CO2 19.5 L, ABG O2 Saturation 100, ABG Base Excess -6.9 L, Ronaldo Test y, Vent Rate 18, Tidal Volume 420, PEEP 5 06/07/23 21:15: Lactate 1.2, Troponin I 0.42 H I & O for Last 24 hours: Intake & Output 06/04/23 06/05/23 06/06/23 06/07/23 23:59 23:59 23:59 23:59 Intake Total 30.534 / 30.534 Output Total 800 / 800 Balance -769.466 / -769.466 Weight 74.843 kg Constitutional Constitutional: obtunded *Routine HEENT Exam Head: Present normocephalic Eye: Absent EOMI, PERRL, normal accommodation or nystagmus ENT: Present mucous membranes moist *Routine Neck Exam Neck: Present supple; Absent lymphadenopathy *Routine Respiratory Exam Respiratory: Present patient mechanically ventilated *Routine Cardiovascular Exam Cardiovascular: Present RRR, Normal S1 and Normal S2 *Routine Abdominal Exam Abdominal: Present soft and normoactive bowel sounds; Absent tenderness *Routine Rectal Exam Rectal:: deferred *Routine Genitalia Exam Genitalia:: deferred *Routine Extremities Exam Extremities: Absent cyanosis, clubbing or edema *Routine Skin Exam Skin: Present warm; Absent rash *Routine Neurological Exam Neurological: Present altered mental status; Absent normal reflexes or moving all extremities Meds Home Medications and Allergies Home Medications Medication Instructions Recorded Confirmed Type amlodipine 10 mg tablet 10 mg PO DAILY #90 tabs 12/04/22 05/08/23 Rx ergocalciferol (vitamin D2) 1,250 50,000 unit PO QWEEK #14 caps 12/04/22 05/08/23 Rx mcg (50,000 unit) capsule lisinopril 20 1 tab PO DAILY 02/05/23 05/08/23 History mg-hydrochlorothiazide 12.5 mg tablet azithromycin 250 mg tablet See Rx Instructions PO .COMPLEX #6 05/08/23 05/08/23 Rx (Zithromax Z-Jair) tabs prednisone 20 mg tablet 20 mg PO BID #10 tabs 05/08/23 05/08/23 Rx hydrocodone 5 mg-acetaminophen 325 1 tab PO TID PRN pain #75 tabs 05/09/23 05/09/23 Rx mg tablet hydrocodone 5 mg-acetaminophen 325 1 tab PO TID PRN pain 30 days #90 05/09/23 05/09/23 Rx mg tablet tabs hydrocodone 5 mg-acetaminophen 325 1 tab PO TID PRN pain 30 days #90 05/09/23 05/09/23 Rx mg tablet tabs meloxicam 15 mg tablet See Rx Instructions .Route 05/22/23 Rx .COMPLEX #30 tabs New Prescriptions to Start Prescriptions: Allergies Allergy/AdvReac Type Severity Reaction Status Date / Time No Known Allergies Allergy Verified 05/08/23 13:43 Hospital Course Hospital Course Hospital Course: Hospitalist was contacted and case was discussed at length, patient be admitted for further definitive management and evaluation in the setting of encephalopathy of unknown etiology. Because patient high risk for clinical decompensation, deemed appropriate for inpatient admission. 2140: Bedside assessment showed no improvement on mental status. Patient failed sedation break-off. Pupils are non reactive. Needs for MRI became urgent. Transfer requested for neurological evaluation. accepted for ICU. patient hemodinamically stable. on mechanical vent. propofol for sedationa. Setting VT 420 PEP 5 RR 18. 2250: Bed assigned to ICU. Results Data Completed and Pending Labs on day of discharge: Labs from last 24 hours 06/07/23 06/07/23 06/07/23 21:15 17:53 17:47 WBC RBC Hgb Hct MCV MCH MCHC RDW Plt Count MPV Neut % (Auto) Lymph % (Auto) [place] % (Auto) Eos % (Auto) Baso % (Auto) Neut # (Auto) Lymph # (Auto) [place] # (Auto) Eos # (Auto) Baso # (Auto) Total Counted Neutrophils % (Manual) Lymphocytes % (Manual) Atypical Lymphs % Platelet Estimate Hypochromasia APTT Specimen Source rr O2 % 100 ABG pH 7.36 ABG pCO2 33.3 L ABG pO2 463.9 H ABG HCO3 18.5 L ABG Total CO2 19.5 L ABG O2 Saturation 100 ABG Base Excess -6.9 L Ronaldo Test y Vent Rate 18 Tidal Volume 420 PEEP 5 Sodium Potassium Chloride Carbon Dioxide Anion Gap BUN Creatinine Estimated Creat Clear Estimated GFR Est GFR ( Amer) Glucose Hemoglobin A1c Lactate 1.2 Calcium Total Bilirubin AST ALT Alkaline Phosphatase Total Creatine Kinase Troponin I 0.42 H NT-Pro-B Natriuret Pep Total Protein Albumin Globulin Albumin/Globulin Ratio Triglycerides Cholesterol LDL Cholesterol Direct VLDL Cholesterol HDL Cholesterol Cholesterol/HDL Ratio Lipase TSH Thyroxine (T4) Urine Color Yellow Urine Appearance Clear Urine pH 5.5 Ur Specific [place] 1.025 Urine Protein Negative Urine Glucose (UA) Negative Urine Ketones Negative Urine Blood Negative Urine Nitrate Negative Urine Bilirubin Negative Urine Urobilinogen 0.2 Ur Leukocyte Esterase Negative Urine RBC None Urine WBC Occasional Ur Squamous Epith Cells Occasional Urine Bacteria Trace Acetaminophen Plasma/Serum Alcohol 06/07/23 17:42 WBC 21.5 H* RBC 4.71 Hgb 10.6 L Hct 35.0 L MCV 74.3 L MCH 22.6 L MCHC 30.4 L RDW 18.4 H Plt Count 592 H MPV 7.7 Neut % (Auto) 82.3 H Lymph % (Auto) 10.0 [place] % (Auto) 6.7 Eos % (Auto) 0.6 Baso % (Auto) 0.5 Neut # (Auto) 17.7 H Lymph # (Auto) 2.2 [place] # (Auto) 1.4 H Eos # (Auto) 0.1 Baso # (Auto) 0.1 Total Counted 100 Neutrophils % (Manual) 83 H Lymphocytes % (Manual) 16 Atypical Lymphs % 1.0 Platelet Estimate Moderate increase Hypochromasia 2+ APTT 25.4 Specimen Source O2 % ABG pH ABG pCO2 ABG pO2 ABG HCO3 ABG Total CO2 ABG O2 Saturation ABG Base Excess Ronaldo Test Vent Rate Tidal Volume PEEP Sodium 142 Potassium 3.4 L Chloride 116 H Carbon Dioxide 18 L Anion Gap 11.4 BUN 21 H Creatinine 0.80 Estimated Creat Clear 49 Estimated GFR 68 Est GFR ( Amer) 82 Glucose 147 H Hemoglobin A1c 6.0 Lactate 3.7 H Calcium 7.5 L Total Bilirubin 0.4 AST 29 ALT 20 Alkaline Phosphatase 75 Total Creatine Kinase 318 H Troponin I 0.05 H NT-Pro-B Natriuret Pep 742 H Total Protein 4.8 L D Albumin 2.8 L Globulin 2.0 Albumin/Globulin Ratio 1.4 Triglycerides 94 Cholesterol 215 H LDL Cholesterol Direct 109.50 VLDL Cholesterol 19 HDL Cholesterol 76 H Cholesterol/HDL Ratio 2.8 Lipase 44 TSH 1.13 Thyroxine (T4) 7.8 Urine Color Urine Appearance Urine pH Ur Specific [place] Urine Protein Urine Glucose (UA) Urine Ketones Urine Blood Urine Nitrate Urine Bilirubin Urine Urobilinogen Ur Leukocyte Esterase Urine RBC Urine WBC Ur Squamous Epith Cells Urine Bacteria Acetaminophen < 10 L Plasma/Serum Alcohol < 10 DS: Diagnosis Discharge Diagnosis (1) Anoxic brain damage: Status: Acute Code(s): G93.1 - Anoxic brain damage, not elsewhere classified (2) Encephalopathy: Status: Acute Code(s): G93.40 - Encephalopathy, unspecified (3) On mechanically assisted ventilation: Status: Acute Code(s): Z99.11 - Dependence on respirator [ventilator] status (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 Code(s): H57.9 - Unspecified disorder of eye and adnexa Discharge Plan Disposition Patient Disposition: Xfer Short-Term Hosp Condition: Critical Discharge Order Discharge Orders: Discharge Order (Routine); Ordered 06/07/23 Ordered By: Dante Kern Follow up Plan Prescriptions/Medication Reconciliation: Continued amlodipine 10 mg tablet 10 mg PO DAILY Qty: 90 1RF ergocalciferol (vitamin D2) 1,250 mcg (50,000 unit) capsule 50,000 unit PO QWEEK Qty: 14 1RF lisinopril-hydrochlorothiazide 20-12.5 mg tablet 1 tab PO DAILY azithromycin [Zithromax Z-Jair] 250 mg tablet See Rx Instructions PO .COMPLEX Qty: 6 0RF Rx Instructions: For 250 mg dose pack: take 500 mg today (day 1), then 250 mg for 4 days (days 2-5) PO prednisone 20 mg tablet 20 mg PO BID Qty: 10 0RF Rx Instructions: administer with food or milk hydrocodone-acetaminophen 5-325 mg tablet 1 tab PO TID PRN (Reason: pain) Qty: 75 0RF Rx Instructions: BID-TID, take an extra as needed for increase pain. hydrocodone-acetaminophen 5-325 mg tablet 1 tab PO TID PRN (Reason: pain) 30 Days Qty: 90 0RF hydrocodone-acetaminophen 5-325 mg tablet 1 tab PO TID PRN (Reason: pain) 30 Days Qty: 90 0RF meloxicam 15 mg tablet See Rx Instructions .ROUTE .COMPLEX Qty: 30 0RF Dose Instruction: TAKE 1 TABLET BY MOUTH ONCE DAILY Rx Instructions: TAKE 1 TABLET BY MOUTH ONCE DAILY Problem Reconciliation Problems Reviewed?: Yes Patient Discharge Instructions ACTIVITY: Bed rest DIET: NPO Providers Primary Care Provider: Poornima Greene Admit Provider: Viry Blair Attending Provider: Viry Blair
--- NOTE | 2023-06-07 23:41 | PC.NURSE ---
@ 5847 REPORT CALLED TO , ANNE-MARIE Manjarrez, 12TH FLOOR, RM [address], MEDICAL ICU TO ALISA PONCE
[2023-06-08] VITALS: BP 121/73; PULSE 63; RESP 18; TEMP 36.6; O2SAT 100
--- NOTE | 2023-06-08 00:09 | PC.NURSE ---
NO CHANGES FROM THIS RN'S 2129 ASSESSMENT
[2023-06-08 00:30] VITALS: BP 121/72; PULSE 75; RESP 18; O2SAT 100
--- NOTE | 2023-06-08 00:50 | PC.NURSE ---
pt left with flight ems at this time
--- NOTE | 2023-06-08 00:53 | INFXCTL.NOTE ---
@ 0015 STAT FLIGHT RN GIVEN BEDSIDE REPORT @ 2020 STAT FLIGHT CREW EXIT W/ PT
== END 2023-06-08 00:50 | disposition short-term general hospital (02) | DRG 92 ==
LOC: ER 18:55 → 2ND 20:05
PROVIDERS: Admitting Provider Internal Medicine; Emergency Provider Emergency Medicine; PCP Physician Assistant; Visit Provider Internal Medicine
DX: G93.1 Anoxic brain damage, not elsewhere classified (principal); G93.40 Encephalopathy, unspecified; H57.9 Unspecified disorder of eye and adnexa; I10 Essential (primary) hypertension; E78.5 Hyperlipidemia, unspecified; G89.29 Other chronic pain
CPT/HCPCS: 31500; 94002; 36415; 51702; 70450; 70496; 70498; 71045; 71275; 72125; 72128; 72131; 74174; 80053; 80061; 80329; 81001; 82550; 82803; 83036; 83605; 83690; 83880; 84436; 84443; 84484; 85007; 85025; 85730; 87040; 93005; 99291; 99292; G0378; J0330; J2704; Q9967